=== PATIENT | female | born 1990 | race Caucasian/White ===

== ENCOUNTER 2020-05-09 08:37 | Day surgery (SDC) | payer MEDICAID, SELFPAY ==
[2020-05-08 18:37] VITALS: BMI 22.4
[2020-05-09] VITALS (10 sets, daily range): BP systolic 105–137; BP diastolic 60–97; PULSE 57–101; RESP 15–20; TEMP 36.5–37.3; O2SAT 60–100
[2020-05-09 08:50] LABS: OR HCG Qualitative Urine Negative (Negative)
[2020-05-09 09:06] LABS: Basophils % 0.2 %; Eosinophils # 0.1 10^3/uL (0.0-0.8); Eosinophils % 1.6 %; Hematocrit 45.4 % (37.0-47.0); Hemoglobin 14.8 g/dL (11.5-15.3); Lymphocytes # 1.8 10^3/uL (0.8-4.8); Lymphocytes % 27.5 %; Mean Corpuscular HGB Conc 32.6 g/dL (30.0-36.0); Mean Corpuscular Hemoglobin 29.1 pg (28.0-34.0); Mean Corpuscular Volume 89.4 fL (81-99); Mean Platelet Volume 11.1 fL (7.4-10.4); Monocytes # 0.4 10^3/uL (0.2-0.9); Monocytes % 5.4 %; Neutrophils # 4.19 10^3/uL (1.8-7.7); Neutrophils % 65.1 %; Nucleated Red Blood Cells % 0 %; Platelet Count 224 10^3/cmm (130-400); Red Blood Count 5.08 10^6/uL (4.1-5.3); Red Cell Distribution Width 11.8 % (12.1-15.1); White Blood Count 6.4 10^3/uL (4.0-10.0)
--- NOTE | 2020-05-09 09:20 | ANES.PREANE2 ---
Pre-Anesthetic Assessment Pre-Anesthetic Assessment: Height/Weight: Height 1.52 m Weight 52.163 kg Temp Pulse Resp BP Pulse Ox 98 F 71 18 108/66 100 05/09/20 09:03 05/09/20 09:03 05/09/20 09:03 05/09/20 09:03 05/09/20 09:03 Preop Diagnosis: Desires sterilization Proposed Procedure: Operation Date: 05/09/20 09:50 Proposed Procedures p Laparoscopic Tubal Fulguration 63972/z30.2(Bilateral) - Pollo Hooper MD s Salpingectomy(Bilateral) - Pollo Hooper MD Social: Social History: Alcohol (occ) and Tobacco Exam: Pre-Anes Outpt Exam: alert, oriented x 3, clear to auscultation bilaterally and regular rate & rhythm Airway: Submandibular: WNL Cervical ROM: WNL MP: 2 Dentition: Other (good dentation) Pulmonary: Pulmonary: None reported CV/HEM: CV/HEM: Arrythmia (h/o PSVT during preg) : : None reported Hepatic: Hepatic: None reported GI: GI: None reported Metabolic: Metabolic: None reported Musc/skel: Musc/skel: None reported Neuropsych: Neuropsych: None reported Anesthetic Plan: ASA status: 1 Anesthesia: Anesthesia Evaluation and General Risk of > 500 ml blood loss (7ml/kg in children): No PFSH Anesthesia PFSH: Medical History No pertinent past medical history Denies: diabetes, asthma, hypertension, seizures, DVT/PE. PCP: None Surgical History H/O benign breast biopsy 2009--removal of benign fibroadenoma from right breast. H/O section 04/02/2020- for prolapsed cord, [facility], [place] H/O wrist surgery Right side for fracture-plates and screws were placed per patient. S/P tonsillectomy and adenoidectomy At the age of 17 Family History Mother Breast cancer diagnosed at age 54 Hypertension Stroke Family/Other Breast cancer paternal cousin, diagnosed in her 30s Colon cancer paternal cousin, had both breast and colon cancer, unsure of origin Grandmother Diabetes paternal Thyroid condition paternal Father Hyperlipidemia Hypertension Denies family history of Heart disease Bleeding disorder Uterine cancer Social History Smoking and tobacco status: current every day smoker cigarettes Alcohol intake: never Additional social history: - Tobacco Use: Started smoking at the age of 22 and at the most smoked 2 pack of cigarettes a day. Has been cutting down since the start of the and now currently smokes 5 to 6 cigarettes daily. Is working on quitting. 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
[2020-05-09] MEDS: sodium chloride 0.9% 1,000 ML 30 ML IV (09:24)
--- NOTE | 2020-05-09 09:40 | W.PM.OPSUD ---
Surgery/Procedure H&P Update DATE OF PROCEDURE: May 09, 2020 DATE H&P PERFORMED: 05/06/20 H&P UPDATE INFORMATION: I have reviewed H&P completed within last 30 days, I have examined patient prior to procedure, No changes to prior documentation and H[place] is in [facility] [place] date indicated PREOP DIAGNOSIS: Desires sterilization PLANNED PROCEDURE: Operation Date: 05/09/20 09:50 Proposed Procedures p Laparoscopic Tubal Fulguration 53215/z30.2(Bilateral) - Pollo Hooper MD s Salpingectomy(Bilateral) - Pollo Hooper MD
[2020-05-09] MEDS: silver nitrate applicator 2 EACH TOPICAL (11:08)
--- NOTE | 2020-05-09 11:17 | PM.OP ---
Operative Report Date of procedure: May 09, 2020 OPERATIVE REPORT Date of surgery: 05/09/2020 Date of dictation: 05/09/2020 Preoperative diagnosis: Multiparity desiring permanent sterilization, previous delivery x1 Postoperative diagnosis/findings: 8-9 week size retroverted uterus, mobile. On laparoscopy normal tubes and ovaries bilaterally, no adhesions intra-abdominally, no abnormalities in the cul-de-sac, bladder adhesions onto uterus consistent with history of . Procedure done: Laparoscopic bilateral total salpingectomy for sterilization. Specimens removed/disposition of specimens: Right and left fallopian tubes sent to pathology Surgeon: Dr. Pollo Wall Preparation Center Coordinator: Yasmin Olvera Anesthesia: General endotracheal tube anesthesia Estimated blood loss: Less than 25 ml Intravenous fluids: 800 mL of LR Urine output: 100 mL of clear urine at the end of procedure. Medications: As per anesthesia records Complications: None, patient was extubated and taken to the recovery room in a stable condition PROCEDURE: After consents were signed patient was taken to the operating room where she was placed under general anesthesia without any difficulty. She was placed supine on the table in the lithotomy position. Exam under anesthesia revealed findings noted above. She was then prepped and draped in usual sterile fashion. Weighted speculum and anterior wall retractors were placed in the vagina, cervix visualized and grasped with a tenaculum. ZUMI uterine manipulator was placed into the uterus without any difficulty. Catheter was placed, instruments were removed from the vagina and the legs were lowered. Attention was turned towards the abdomen where half percent Marcaine with epinephrine was injected in to her umbilicus. A Cuello trocar was placed after fascia was visualized elevated directly incised and peritoneum was entered bluntly. No adhesions palpable. Cuello trocar was attached to the fascia. Once intra-abdominal entry was confirmed gas was turned on and intra-abdominal opening pressure was 2. The abdomen is insufflated to the pressure was 14. Survey of the abdomen revealed normal anatomy and findings noted above.. No other gross abnormality were identified. A 5 mm trocar was placed into the left and right lower quadrant to direct visualization after injecting Marcaine. The Vuoyant electrocautery device was used to grab the mesosalpinx under the right fallopian tube. This was then clamped, cauterized and then cut in a sequential fashion under the fallopian tube until the entire tube was excised up to the cornual end. The tube was taken out through the 5 mm trocar. This was repeated on the left side in a similar fashion and good hemostasis was achieved. Bilateral cornual ends were cauterized again. Good hemostasis was noted on desufflation. All instruments removed from the abdomen and the abdomen was desufflated. Trochars were removed. The fascia on the umbilical port was closed with 0 Vicryl in a continuous fashion taking care to elevate and avoid the bowel. Good reapproximation was noted. The skin incision x3 was closed with 4-0 Monocryl in a subcuticular fashion good reapproximation and hemostasis was noted. The incisions were dressed with Steri-Strips Telfa and Tegaderm. The ZUMI and Aguilar catheter were removed and hemostasis was noted after cautery with silver nitrate. The patient was extubated without any difficulty and taken to the recovery room in a stable condition. FOLLOW UP: Follow-up in 2 weeks and 6 weeks with surgeon MEDICATION ON DISCHARGE: Colace 100 mg by mouth every 12 hours when necessary constipation, 30 tablets, no refills Ibuprofen 800 mg by mouth every 8 hours when necessary pain, 60 tablets, no refills. [place] 5/325 mg 1 tablet by mouth every 6 hours when necessary pain,25 tablets, no refills Continue other home medication DISPOSITION: Home in a stable condition Pre-op Diagnosis: Desires sterilization [facility] [employer] Medical History No pertinent past medical history Denies: diabetes, asthma, hypertension, seizures, DVT/PE. PCP: None Surgical History (Updated 05/09/20 @ 11:22 by Pollo Hooper MD) H/O benign breast biopsy 2009--removal of benign fibroadenoma from right breast. H/O section 04/02/2020- for prolapsed cord, [facility], [place] H/O wrist surgery Right side for fracture-plates and screws were placed per patient. S/P tonsillectomy and adenoidectomy At the age of 17 Status post tubal ligation 05/09/2020--laparoscopic total salpingectomy for sterilization by Dr. Wall at [facility] [place]. Pathology pending Family History Mother Breast cancer diagnosed at age 54 Hypertension Stroke Family/Other Breast cancer paternal cousin, diagnosed in her 30s Colon cancer paternal cousin, had both breast and colon cancer, unsure of origin Grandmother Diabetes paternal Thyroid condition paternal Father Hyperlipidemia Hypertension Denies family history of Heart disease Bleeding disorder Uterine cancer Social History Smoking and tobacco status: current every day smoker cigarettes Alcohol intake: never Additional social history: - Tobacco Use: Started smoking at the age of 22 and at the most smoked 2 pack of cigarettes a day. Has been cutting down since the start of the and now currently smokes 5 to 6 cigarettes daily. Is working on quitting. 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 Contraception Contraception History Comment: Has used control pills and condoms in the past for contraception. She states she is not a very good pill taker. Laparoscopic total salpingectomy for sterilization performed on 05/09/2020.
[2020-05-09] MEDS: ondansetron 2 mg/ML SDV 2 mL 4 MG IVP ×2 (11:30→11:48)
[2020-05-09] MEDS: ketorolac 30 mg/mL INJ 15 MG IVP (11:30)
[2020-05-09] MEDS: HYDROcodone-acetaminophen 5-325 mg Tablet 1 TAB PO (12:00)
== END 2020-05-09 12:52 | disposition home or self-care (01) ==
PROVIDERS: Visit Provider Obstetrics & Gynecology
PROC: (CPT 58670; principal; 2020-05-09 09:50)
DX: Z30.2 Encounter for sterilization (principal); F17.210 Nicotine dependence, cigarettes, uncomplicated
CPT/HCPCS: 58661; 12345; 36415; 81025; 84703; 85025; 86850; 86870; 86900; 88302; J1100; J1885; J2405; J2704; J2710; J3010; J3490; J7030

== ENCOUNTER → 2023-08-20 16:22 | Outpatient (BNVA) | payer MEDICAID, SELFPAY | PROVIDERS: PCP Family Medicine; Visit Provider Emergency Medicine | DX: J02.9 Acute pharyngitis, unspecified (principal) | CPT/HCPCS: 87071; 87880 ==